=== PATIENT | male | born 1990 | race Caucasian/White ===

== ENCOUNTER 2017-06-09 21:14 | Emergency (ER) | payer BC, OTHER ==
[~2017-06-09 21:14] MED LIST changes: -BISM262O24 PO; -DOXY-179 PO; -METR-1 PO; -OMEP40CA48 PO; -PRED20TA6 PO
--- NOTE | 2017-06-09 21:17 | ER Report ---
History and Physical Time Seen By MD: 21:17 HPI/ROS CHIEF COMPLAINT: allergic reaction. HISTORY OF PRESENT ILLNESS: This is a 27 year old male. He was eating rice and soy sauce tonight. Started to have an allergic reaction with tightness in throat and trouble swallowing. Has had this in the past, unsure what causes it. Never had problems with these foods in the past. EMS gave epinephrine 0.3mg IM, IV started and given Benadryl 50mg and Zofran 4mg. He is starting to feel better. No shortness of breath. No rash or hives with this. No other unusual exposures that he can think of. Allergies: Coded Allergies: Penicillins (Verified Allergy, Mild, 06/09/17) codeine (Verified Allergy, Mild, 06/09/17) latex (Verified Allergy, Mild, 06/09/17) Home Meds Active Scripts Prednisone (PREDNISONE) 20 Mg Tablet, 60 MG PO QDAY, #12 TAB 0 Refills Prov:LETI YEPEZ MD 06/09/17 Discontinued Reported Medications Hydrocodone Bit/Acetaminophen (HYDROCODON-ACETAMINOPHEN 5-325) 1 Each Tablet, 1 EACH PO Q4-6H 11/01/12 Clindamycin Hcl (CLINDAMYCIN HCL) 150 Mg Capsule, 150 MG PO TID, #30 CAPSULE TAKE 1 CAPSULE THREE TIMES DAILY 11/01/12 [No Meds] No Conflict Check 10/15/10 Reviewed Nurses Notes: Yes Hx Smoking: Yes Hx Substance Use Disorder: No Hx Alcohol Use: No Constitutional Vital Sign - Last 24 Hours 06/09/17 06/09/17 06/09/17 06/09/17 21:21 21:30 21:50 22:00 Temp 98.6 Pulse 77 67 85 90 Resp 16 11 20 B/P (MAP) 125/72 119/73 (88) 126/57 (80) Pulse Ox 98 96 88 O2 Delivery Room Air 06/09/17 06/09/17 22:10 22:15 Pulse 83 80 Resp 13 Pulse Ox 90 Intake and Output 06/09/17 06/09/17 06/10/17 15:00 23:00 07:00 Intake Total 1050 ml Balance 1050 ml Physical Exam General Appearance: The patient is alert, has no immediate need for airway protection and no current signs of toxicity. Eyes: Pupils equal and round no injection. ENT: Normal oral mucosa. Moist mucous membranes. Posterior oropharynx with some fullness. No angioedema of the lips or tongue swelling. Neck: Neck is supple and non tender. Respiratory: Chest is non tender, lungs are clear to auscultation. Cardiac: regular rate and rhythm Skin: No rashes or lesions. DIFFERENTIAL DIAGNOSIS: After history and physical exam differential diagnosis was considered for allergic reaction with some improvement after benadryl and epinephrine. Medical Decision Making ED Course/Re-evaluation Clinical Indication for ER IV: Hydration, IV Access ED Course IV started by EMS and they gave 500ml of NS. We gave the rest of the NS and gave Solu-Medrol 125mg IV and Pepcid 20mg IV and observed for improvement. 06/09/2017 10:20:46 pm: Re-evaluation, patient feels better, no trouble swallowing or breathing, symptoms gone. Prednisone 60mg oral dose given. see instructions. Decision to Disposition Date: Jun 09, 2017 Decision to Disposition Time: 22:21 Depart Departure Latest Vital Signs Vital Signs Date Time Temp Pulse Resp B/P (MAP) Pulse Ox O2 Delivery O2 Flow Rate FiO2 06/09/17 22:15 80 06/09/17 22:10 13 90 06/09/17 22:00 126/57 (80) 06/09/17 21:21 98.6 Room Air Impression: Primary Impression: Allergic reaction Condition: Improved Disposition: HOME OR SELF-CARE Referrals: SIMON ESPINAL MD (PCP) New Scripts Prednisone (PREDNISONE) 20 Mg Tablet 60 MG PO QDAY, #12 TAB 0 Refills Prov: LETI YEPEZ MD 06/09/17 Patient Instructions: General Allergic Reaction (ED) Additional Instructions: Prednisone 20mg tablets, take 3 tablets once a day for 4 days. Benadryl 25mg over the counter tablets, take 1-2 tablets every 6 hours for rash and itching. Follow-up with primary care or consider seeing an foaming machine operator for further evaluation. Problem Qualifiers Primary Impression: Allergic reaction Encounter type: initial encounter Qualified Codes: T78.40XA - Allergy, unspecified, initial encounter LETI YEPEZ MD Jun 09, 2017 21:17
[2017-06-09] MEDS ORDERED: methylPREDNIS SUCC 125 MG/2ML IVP ONE (21:20)
[2017-06-09] MEDS ORDERED: FAMOTIDINE(*) 20MG/50ML PREMIX 50 ML IVPB ONE (21:20)
[2017-06-09] MEDS: EMS NS 0.9%(*) 1000 ML BAG 1,000 ML IV ONE ×2 (21:30→22:35)
[2017-06-09 22:00] VITALS: BP 126/57
[2017-06-09] MEDS ORDERED: predniSONE 20 MG TAB PO ONE (22:20)
[2017-06-09] MEDS ORDERED: PRED20TA6 PO (22:22)
== END 2017-06-09 22:32 | disposition home or self-care (01) ==
LOC: ER 21:26
DX: T78.40XA Allergy, unspecified, initial encounter (principal)
CPT/HCPCS: 96365; 96375; 99283; J2930; J3490; J7512

== ENCOUNTER → 2017-06-09 | Outpatient (CLI) | payer BC ==
[~2017-06-09] MED LIST: BISM262O24 PO; CLIN-75 PO; DOXY-179 PO; LOR5 PO; LOR5/325 PO; METR-1 PO; NO MEDS; OMEP40CA48 PO; PRED20TA6 PO; TOBOD OD
== END ==
LOC: AMB 20:53
PROVIDERS: ATTEND Nurse Practitioner
DX: T78.40XA Allergy, unspecified, initial encounter (principal)
CPT/HCPCS: A0425; A0427

== ENCOUNTER 2017-06-12 10:51 | Emergency (ER) | payer BC, OTHER ==
[~2017-06-12 10:51] MED LIST changes: +PRED20TA6 PO
--- NOTE | 2017-06-12 11:08 | ER Report ---
History and Physical Time Seen By MD: 11:08 Hx. of Stated Complaint: SOB SINCE THIS AM HPI/ROS chief concern: chest pain, shortness of breath HPI: 27 y/o male presents with concern of chest pain intermittently since 0530 this morning. Reports accompanied by shortness of breath and lightheadedness. Describes as "pressure". Denies any precipitating factors, denies presence of chest pain currently. Identifies mid sternum as area of pain. Denies fevers, cough, sputum. Reports he was seen here at the ED for an allergic reaction 06/09. He had eaten rice and soy sauce but denies any previous reaction to either. Reports he was unable to fill prednisone prescription due to finances. Reports additional allergies to peanuts, bananas, codeine, and penicillin. He has seen an cytometry technologist, but states allergen testing was negative for the foods mentioned. Review of Systems: General: Reports lightheadedness, denies fevers. HENT: Denies sore throat, ear pain, vision changes, hearing changes Respiratory: Reports shortness of breath CV: Reports intermittent mediastinal chest pain. GI: Denies nausea, vomiting, acid reflux, diarrhea, changes to stool. Allergies: Coded Allergies: Penicillins (Verified Allergy, Mild, 06/12/17) codeine (Verified Allergy, Mild, 06/12/17) latex (Verified Allergy, Mild, 06/12/17) Home Meds Active Scripts Bismuth Subsalicylate (BISMUTH SUBSALICYLATE) 262 Mg/15 Ml Oral.susp, 262 MG PO BID, #420 ML Prov:DURAN FRIED 06/12/17 Omeprazole (OMEPRAZOLE) 40 Mg Capsule.dr, 40 MG PO QDAY, #14 CAP Prov:DURAN FRIED 06/12/17 Metronidazole (FLAGYL) 500 Mg Tablet, 500 MG PO BID, #28 TAB Prov:DURAN FRIED 06/12/17 Doxycycline Hyclate (DOXYCYCLINE HYCLATE) 100 Mg Tablet, 100 MG PO BID, #28 TAB Prov:DURAN FRIED 06/12/17 Prednisone (PREDNISONE) 20 Mg Tablet, 60 MG PO QDAY, #12 TAB 0 Refills Prov:LETI YEPEZ MD 06/09/17 Discontinued Reported Medications Hydrocodone Bit/Acetaminophen (HYDROCODON-ACETAMINOPHEN 5-325) 1 Each Tablet, 1 EACH PO Q4-6H 11/01/12 Clindamycin Hcl (CLINDAMYCIN HCL) 150 Mg Capsule, 150 MG PO TID, #30 CAPSULE TAKE 1 CAPSULE THREE TIMES DAILY 11/01/12 [No Meds] No Conflict Check 10/15/10 Past Medical/Surgical History Reports history of allergies to peanuts, bananas, codeine, penicillin. Reports tonsillectomy 2008; history of ear tubes. Reviewed Nurses Notes: Yes Old Medical Records Reviewed: Yes Hx Smoking: Yes Smoking Status: Former Smoker Hx Substance Use Disorder: No Hx Alcohol Use: No Constitutional Vital Sign - Last 24 Hours 06/12/17 06/12/17 06/12/17 06/12/17 10:58 11:00 11:30 12:00 Temp 98.7 Pulse 64 62 73 Resp 18 8 11 B/P (MAP) 134/80 130/85 (100) 128/72 (90) 116/74 (88) Pulse Ox 95 93 97 O2 Delivery Room Air 06/12/17 06/12/17 12:30 12:49 Pulse 66 Resp 20 B/P (MAP) 118/71 (87) 124/80 (95) Pulse Ox 98 Intake and Output 06/12/17 06/12/17 06/13/17 15:00 23:00 07:00 Intake Total 1000 ml Balance 1000 ml Physical Exam Physical exam: General: Alert, orientedx3, no acute distress. HENT: PERRLA, TMs pearly morris with no erythema to canal. Posterior pharynx pink with no evidence of erythema or inflammation. No lymphadenopathy. Respiratory: Clear to auscultation bilaterally. CV: No erythema, inflammation or ecchymosis to anterior chest wall. Regular rate and rhythm. No tenderness to palpation. GI: Bowel sounds normoactive all quadrants. Nontender to palpation. After obtaining thorough HPI, ROS, and physical exam, the following differentials were considered but not limited to: myocardial infarction, PE, continued allergic reaction, GERD, non-cardiac chest pain, anxiety. Medical Decision Making Data Points Result Diagram: 06/12/17 1146 06/12/17 1146 Laboratory Hematology Test 06/12/17 11:46 Red Blood Count 5.54 M/uL (4.00-5.60) Mean Corpuscular Volume 87.5 fL (80.0-96.0) Mean Corpuscular Hemoglobin 29.7 pg (26.0-33.0) Mean Corpuscular Hemoglobin Concent 33.9 g/dL (32.0-36.0) Red Cell Distribution Width 12.8 % (11.5-14.5) Mean Platelet Volume 8.1 fL (7.2-11.1) Neutrophils (%) (Auto) 54.4 % (39.4-72.5) Lymphocytes (%) (Auto) 35.6 % (17.6-49.6) Monocytes (%) (Auto) 6.0 % (4.1-12.4) Eosinophils (%) (Auto) 3.2 % (0.4-6.7) Basophils (%) (Auto) 0.8 % (0.3-1.4) Nucleated RBC Relative Count (auto) 0.0 /100WBC Neutrophils # (Auto) 5.1 K/uL (2.0-7.4) Lymphocytes # (Auto) 3.4 K/uL (1.3-3.6) Monocytes # (Auto) 0.6 K/uL (0.3-1.0) Eosinophils # (Auto) 0.3 K/uL (0.0-0.5) Basophils # (Auto) 0.1 K/uL (0.0-0.1) Nucleated RBC Absolute Count (auto) 0.00 K/uL D-Dimer Quantitative (PE/DVT) < 0.27 ug/ml (0-0.50) Sodium Level 140 mmol/L (137-145) Potassium Level 3.8 mmol/L (3.5-5.0) Chloride Level 100 mmol/L (98-107) Carbon Dioxide Level 29 mmol/L (22-30) Blood Urea Nitrogen 11 mg/dl (9-21) Creatinine 0.90 mg/dl (0.66-1.25) Glomerular Filtration Rate Calc > 60.0 Random Glucose 92 mg/dl (75-110) Calcium Level 9.8 mg/dl (8.4-10.2) Total Bilirubin 0.4 mg/dl (0.2-1.3) Aspartate Amino Transf (AST/SGOT) 34 U/L (0-35) Alanine Aminotransferase (ALT/SGPT) 91 U/L (0-56) Alkaline Phosphatase 62 U/L (0-126) Troponin I < 0.012 ng/ml Total Protein 7.9 gm/dl (6.3-8.2) Albumin 4.4 g/dl (3.5-5.0) Helicobacter pylori IgG Antibody Positive (NEGATIVE) Chemistry Test 06/12/17 11:46 White Blood Count 9.5 k/uL (4.5-11.0) Red Blood Count 5.54 M/uL (4.00-5.60) Hemoglobin 16.5 g/dL (14.0-18.0) Hematocrit 48.5 % (42.0-52.0) Mean Corpuscular Volume 87.5 fL (80.0-96.0) Mean Corpuscular Hemoglobin 29.7 pg (26.0-33.0) Mean Corpuscular Hemoglobin Concent 33.9 g/dL (32.0-36.0) Red Cell Distribution Width 12.8 % (11.5-14.5) Platelet Count 317 K/uL (150-450) Mean Platelet Volume 8.1 fL (7.2-11.1) Neutrophils (%) (Auto) 54.4 % (39.4-72.5) Lymphocytes (%) (Auto) 35.6 % (17.6-49.6) Monocytes (%) (Auto) 6.0 % (4.1-12.4) Eosinophils (%) (Auto) 3.2 % (0.4-6.7) Basophils (%) (Auto) 0.8 % (0.3-1.4) Nucleated RBC Relative Count (auto) 0.0 /100WBC Neutrophils # (Auto) 5.1 K/uL (2.0-7.4) Lymphocytes # (Auto) 3.4 K/uL (1.3-3.6) Monocytes # (Auto) 0.6 K/uL (0.3-1.0) Eosinophils # (Auto) 0.3 K/uL (0.0-0.5) Basophils # (Auto) 0.1 K/uL (0.0-0.1) Nucleated RBC Absolute Count (auto) 0.00 K/uL D-Dimer Quantitative (PE/DVT) < 0.27 ug/ml (0-0.50) Glomerular Filtration Rate Calc > 60.0 Calcium Level 9.8 mg/dl (8.4-10.2) Total Bilirubin 0.4 mg/dl (0.2-1.3) Aspartate Amino Transf (AST/SGOT) 34 U/L (0-35) Alanine Aminotransferase (ALT/SGPT) 91 U/L (0-56) Alkaline Phosphatase 62 U/L (0-126) Troponin I < 0.012 ng/ml Total Protein 7.9 gm/dl (6.3-8.2) Albumin 4.4 g/dl (3.5-5.0) Helicobacter pylori IgG Antibody Positive (NEGATIVE) Coagulation Test 06/12/17 11:46 D-Dimer Quantitative (PE/DVT) < 0.27 ug/ml EKG/Imaging EKG Interpretation Normal sinus rhythm. Incomplete right bundle branch block. Cannot rule out anterior infarct, age undetermined. Vent rate: 71 bpm SC interval: 152 ms QRS duration: 102 ms QT/QTc: 388/421 ms P-R-T axes 62 13 28 Monitor Interpretation: Normal Sinus Rhythm Imaging 2 VIEWS CHEST INDICATION: Chest pain COMPARISON: None available FINDINGS: Cardiomediastinal silhouette and pulmonary vessels within normal limits. There is no focal infiltrate or lobar consolidation. There is no pneumothorax or pleural effusion. No nodule. Upper abdomen is unremarkable. No acute bony abnormality. IMPRESSION: 1. No acute cardiopulmonary process. Report Dictated By: Donte Coto at 06/12/2017 12:14 PM Report E-Signed By: Donte Coto at 06/12/2017 12:18 PM ED Course/Re-evaluation ED Course Patient admitted to exam room. Thorough HPI and ROS obtained. Physical exam did not show any abnormalities with posterior pharynx pink with no erythema or inflammation, lungs clear to auscultation, heart regular rate and rhythm, no evidence of trauma/erythema/ inflammation to anterior chest wall, and abdominal nontender to palpation. After obtaining thorough HPI, ROS, and physical exam, the following differentials were considered but not limited to: UT, PE, continued allergic reaction, GERD, non-cardiac chest pain, and anxiety. Tests completed include: chest x-ray, EKG, CMP, CBC, troponin, h.pylori, d-dimer. IV initiated with 1000ml of normal saline wide open, and 125mg of solumedrol given , patient reported tolerated well. CBC showed no evidence of hemodynamic instability or infection. CMP showed no electrolyte imbalances or organ damage. Troponin was negative. EKG showed normal sinus rhythm with an incomplete right bundle branch block. D-dimer was negative. H.pylor was positive. CXR: IMPRESSION: 1. No acute cardiopulmonary process. Findings and diagnosis of H.pylori gastritis discussed with patient. Prescribed quadruple therapy of flagyl, doxycycline, omeprazole, and pepto-bismol m2cvxol. Recommend patient follow up with PCP within next week. Patient verbalized understanding and agreed to plan. Decision to Disposition Date: Jun 12, 2017 Decision to Disposition Time: 12:45 Depart Departure Latest Vital Signs Vital Signs Date Time Temp Pulse Resp B/P (MAP) Pulse Ox O2 Delivery O2 Flow Rate FiO2 06/12/17 12:49 124/80 (95) 06/12/17 12:30 66 20 98 06/12/17 10:58 98.7 Room Air Impression: Primary Impression: H. pylori duodenitis Condition: Improved Disposition: HOME OR SELF-CARE New Scripts Bismuth Subsalicylate (BISMUTH SUBSALICYLATE) 262 Mg/15 Ml Oral.susp 262 MG PO BID, #420 ML Prov: DURAN FRIED 06/12/17 Omeprazole (OMEPRAZOLE) 40 Mg Capsule.dr 40 MG PO QDAY, #14 CAP Prov: DURAN FRIED 06/12/17 Metronidazole (FLAGYL) 500 Mg Tablet 500 MG PO BID, #28 TAB Prov: DURAN FRIED 06/12/17 Doxycycline Hyclate (DOXYCYCLINE HYCLATE) 100 Mg Tablet 100 MG PO BID, #28 TAB Prov: DURAN FRIED 06/12/17 Departure Forms: ER Transition Record, Medications Reconciliation Patient Instructions: Helicobacter Pylori (ED) Additional Instructions: Return to the ER if condition worsens. Take the Prednisone that was prescribed earlier this week. Get plenty of rest. Take omeprazole, doxycycline, flagyl, and pepto-bismol as directed for two weeks. Follow up with your primary care provider in the next week. DURAN FRIED Jun 12, 2017 11:08
[2017-06-12] MEDS ORDERED: NS(*) 0.9% 1000 ML BAG 1,000 ML IV ONE (11:25)
[2017-06-12] MEDS ORDERED: methylPREDNIS SUCC 125 MG/2ML IVP ONE (11:25)
--- NOTE | 2017-06-12 11:47 | EKG ---
FACILITY: [facility] - [place] PATIENT NAME: RENE HERRERA : [id number] MR: [id number] V: [id number] EXAM DATE: ORDERING PHYSICIAN: DURAN FRIED TECHNOLOGIST: EMT STUDENT IN ER Test Reason : CP Blood Pressure : / mmHG Vent. Rate : 071 BPM Atrial Rate : 071 BPM P-R Int : 152 ms QRS Dur : 102 ms QT Int : 388 ms P-R-T Axes : 062 013 028 degrees QTc Int : 421 ms Normal sinus rhythm No ST-T abnormalities No previous ECGs available Confirmed by CASSANDRA TALLEY ([id number]) on 06/12/2017 12:37:44 PM Referred By: DURAN Confirmed By:CASSANDRA TALLEY
[2017-06-12 12:05] LABS: PLATELET COUNT, AUTOMATED 317 K/uL (150-450)
--- NOTE | 2017-06-12 12:22 | RADIOLOGY IMAGING REPORT ---
FACILITY: [facility] PATIENT NAME: Nestor Rodriguez : 1990 MR: [id number] V: [id number] EXAM DATE: ORDERING PHYSICIAN: DURAN FRIED TECHNOLOGIST: Location: [facility] - [place] Patient: Nestor Rodriguez : 1990 Visit/Account:[id number] Date of Sevice: 06/12/2017 2 VIEWS CHEST INDICATION: Chest pain COMPARISON: None available FINDINGS: Cardiomediastinal silhouette and pulmonary vessels within normal limits. There is no focal infiltrate or lobar consolidation. There is no pneumothorax or pleural effusion. No nodule. Upper abdomen is unremarkable. No acute bony abnormality. IMPRESSION: 1. No acute cardiopulmonary process. Report Dictated By: Donte Coto at 06/12/2017 12:14 PM Report E-Signed By: Donte Coto at 06/12/2017 12:18 PM WSN:[id number]
[2017-06-12] MEDS ORDERED: METR-1 PO (12:44)
[2017-06-12] MEDS ORDERED: BISM262O24 PO (12:44)
[2017-06-12] MEDS ORDERED: OMEP40CA48 PO (12:44)
[2017-06-12] MEDS ORDERED: DOXY-179 PO (12:44)
[2017-06-12 12:49] VITALS: BP 124/80
== END 2017-06-12 12:50 | disposition home or self-care (01) ==
LOC: ER 10:51
DX: A04.8 Other specified bacterial intestinal infections (principal)
CPT/HCPCS: 71046; 84484; 85025; 85379; 86677; 93005; 96361; 96374; 99284; J2930; J7030; 82040; 82247; 82310; 82374; 82435; 82565; 82947; 84075; 84132; 84155; 84295; 84450; 84460; 84520

== ENCOUNTER 2017-12-27 21:20 | Emergency (ER) | payer SELFPAY ==
[~2017-12-27 21:20] MED LIST changes: +BISM262O24 PO; +DOXY-179 PO; +METR-1 PO; +OMEP40CA48 PO
--- NOTE | 2017-12-27 21:38 | ER Report ---
History and Physical Time Seen By MD: 21:32 Hx. of Stated Complaint: PT CUT RIGHT HAND BY BREAKING A PIECE OF WOOD OVER ANOTHER. HPI/ROS CHIEF COMPLAINT: Laceration HISTORY OF PRESENT ILLNESS: 27-year-old male patient presents to emergency room with complaint of laceration to the right hand. Patient states that he was in the process of trying to break a stick into a smaller piece of wood when it came back and hitting the hand. It did result in a laceration between his third and fourth fingers. Patient states his tetanus shot was approximately 10 years ago. He denies any numbness or tingling. Patient has good movement with the fingers of his hand. Patient did apply pressure to the wound. Allergies: Coded Allergies: Penicillins (Verified Allergy, Mild, 12/27/17) codeine (Verified Allergy, Mild, 12/27/17) latex (Verified Allergy, Mild, 12/27/17) Home Meds Active Scripts Sulfamethoxazole/Trimet 800-160 Mg Tab (BACTRIM DS TABLET) 1 Each Tablet, 1 TAB PO Q12H, #8 TAB Prov:DURAN FRIED 12/27/17 Bismuth Subsalicylate (BISMUTH SUBSALICYLATE) 262 Mg/15 Ml Oral.susp, 262 MG PO BID, #420 ML Prov:DURAN FRIED 06/12/17 Omeprazole (OMEPRAZOLE) 40 Mg Capsule.dr, 40 MG PO QDAY, #14 CAP Prov:DURAN FRIED 06/12/17 Metronidazole (FLAGYL) 500 Mg Tablet, 500 MG PO BID, #28 TAB Prov:DURAN FRIED 06/12/17 Doxycycline Hyclate (DOXYCYCLINE HYCLATE) 100 Mg Tablet, 100 MG PO BID, #28 TAB Prov:DURAN FRIED 06/12/17 Prednisone (PREDNISONE) 20 Mg Tablet, 60 MG PO QDAY, #12 TAB 0 Refills Prov:LETI YEPEZ MD 06/09/17 Past Medical/Surgical History Patient has no pertinent medical history. Patient has a surgical history of tubes in ears, tonsillectomy. Reviewed Nurses Notes: Yes Hx Smoking: Yes Smoking Status: Former Smoker Hx Substance Use Disorder: No Hx Alcohol Use: No Constitutional Vital Sign - Last 24 Hours 12/27/17 12/27/17 12/27/1718 21:28 21:30 21:30 21:35 Temp 98.0 Pulse 82 82 Resp 16 B/P (MAP) 145/100 (115) 127/90 (102) 145/100 Pulse Ox 95 97 O2 Delivery Room Air 12/27/17 12/27/17 12/27/17 12/27/17 21:50 22:00 22:05 22:20 Pulse 77 79 88 B/P (MAP) 125/75 (92) Pulse Ox 95 95 94 Physical Exam General appearance: Alert no distress. Respiratory: Chest is non tender, lungs are clear to auscultation. Cardiac: Regular rate and rhythm. Skin: Patient has a 2 cm laceration to the right hand between the third and fourth MCP joint. Does go into the subcutaneous tissue. There is no foreign body noted, no obvious tendon injury. DIFFERENTIAL DIAGNOSIS: After history and physical exam differential diagnosis was considered for laceration. Medical Decision Making EKG/Imaging Imaging HAND COMPLETE RIGHT Indication: Laceration. Comparison: 08/21/2009 Findings: 3 views of the right hand are obtained. No acute fracture or dislocation is identified. No osseous or joint centered abnormality is seen. No evidence of radiopaque foreign body. No focal soft tissue swelling. Impression: 1. Normal right hand. Report Dictated By: Kenn Zapien at 12/27/2017 10:38 PM Report E-Signed By: Kenn Zapien at 12/27/2017 10:40 PM ED Course/Re-evaluation ED Course Patient was admitted to exam room, history and physical for pain. Differential diagnoses were considered. I examination patient does have a laceration between the third and fourth fingers. An x-ray was done as this laceration was caused by would. There were no foreign bodies noted. The wound was anesthetized, cleaned and repaired described below. Patient tolerated procedure well. We'll go ahead and discharge him home at this time. He is follow-up with his primary care provider in 7-10 days. He is return to emergency room if condition worsens. He is to monitor for any signs of infection. Patient verbalized understanding and agreement with plan. Procedure: Laceration repair. Verbal consent was obtained from the patient. The 2 cm laceration on the right hand was anesthetized in the usual fashion. The wound was scrubbed, draped and explored to its base with a gloved finger. There were no deep structures involved. No tendon injury was identified. The wound was repaired with 5 simple interrupted sutures using 4-0 Ethilon material. The wound repair was simple. The procedure was performed by myself. Decision to Disposition Date: Dec 27, 2017 Decision to Disposition Time: 22:05 Depart Departure Latest Vital Signs Vital Signs Date Time Temp Pulse Resp B/P (MAP) Pulse Ox O2 Delivery O2 Flow Rate FiO2 12/27/17 22:20 88 94 12/27/17 22:00 125/75 (92) 12/27/17 21:30 98.0 16 Room Air Impression: Primary Impression: Laceration Condition: Improved Disposition: HOME OR SELF-CARE New Scripts Sulfamethoxazole/Trimet 800-160 Mg Tab (BACTRIM DS TABLET) 1 Each Tablet 1 TAB PO Q12H, #8 TAB Prov: DURAN FRIED 12/27/17 Patient Instructions: Hand Laceration Additional Instructions: Keep wound dry for 48 hours. Follow up with your primary care provider in the next 7-10 days to have sutures removed. Monitor for signs of infection; redness, swelling, heat, discharge, increasing pain or red streaking. Take Tylenol or Ibuprofen as needed for pain. Return to the ER with any concerns. You may change dressing as needed. DURAN FRIED Dec 27, 2017 21:38
[2017-12-27] MEDS ORDERED: DIPHTH/TETANUS/ACEL. PERTUSSIS IM ONLY ONE (21:50)
[2017-12-27] MEDS ORDERED: SULF-198 PO (22:40)
--- NOTE | 2017-12-27 22:43 | RADIOLOGY IMAGING REPORT ---
FACILITY: PATIENT NAME: Nestor Rodriguez : 1990 MR: [id number] V: [id number] EXAM DATE: ORDERING PHYSICIAN: DURAN FRIED TECHNOLOGIST: Location: [facility] - [place] Patient: Nestor Rodriguez : 1990 Visit/Account:[id number] Date of Sevice: 12/27/2017 HAND COMPLETE RIGHT Indication: Laceration. Comparison: 08/21/2009 Findings: 3 views of the right hand are obtained. No acute fracture or dislocation is identified. No osseous or joint centered abnormality is seen. No evidence of radiopaque foreign body. No focal soft tissue swelling. Impression: 1. Normal right hand. Report Dictated By: Kenn Zapien at 12/27/2017 10:38 PM Report E-Signed By: Kenn Zapien at 12/27/2017 10:40 PM WSN:[id number]
[2017-12-27] MEDS ORDERED: TRIMETHOPRIM/SULFA 160-800 TH 2 TAB/BOTTLE PO ONE (22:45)
[2017-12-27 22:58] VITALS: BP 138/85
== END 2017-12-27 23:10 | disposition home or self-care (01) ==
LOC: ER 21:40
DX: S61.411A Laceration without foreign body of right hand, initial encounter (principal); W45.8XXA Other foreign body or object entering through skin, initial encounter
CPT/HCPCS: 90471; 90715; 99283